=== PATIENT | male | born 1980 | race Caucasian/White ===

== ENCOUNTER 2016-08-14 15:23 | Emergency (ER) | payer MEDICAID ==
[2016-08-14] MEDS ORDERED: DIPHENHYDRAMINE HCL 50 MG CAPSULE PO ONE (15:43)
[2016-08-14] MEDS ORDERED: ACETAMINOPHEN 325 MG TABLET PO ONE (15:43)
[2016-08-14] MEDS ORDERED: ONDANSETRON 4 MG TAB.RAPDIS PO ONE (15:43)
--- NOTE | 2016-08-14 15:43 | ER Document Report ---
ED Medical Screen (RME) - General Stated Complaint: HEADACHE Time seen by provider: 15:39 Mode of Arrival: Ambulatory Information source: Patient Notes: 35-year-old male presents to ED for a headache since yesterday morning. Nausea since last night and vomiting this morning. Intermittent blurred vision pain comes and goes sometimes is very sharp sometimes is throbbing. Sensitive to light and noisesensitivity to position or movement. Patient has a history of migraine last one was 2-3 weeks ago. Normally takes Excedrin Migraine for his headaches no relief this time. I have greeted and performed a rapid initial assessment of this patient. A comprehensive ED assessment and evaluation of the patient, analysis of test results and completion of medical decision making process will be conducted by an additional ED providers. TRAVEL OUTSIDE OF THE [place] IN LAST 30 DAYS: No - Related Data Allergies/Adverse Reactions: No Known Allergies Allergy (Verified 08/14/16 15:39) Past Medical History Neurological Medical History: Reports: Hx Migraine - Immunizations Hx Diphtheria, Pertussis, Tetanus Vaccination: Yes Physical Exam - Vital signs Vitals: Temp Pulse Resp BP Pulse Ox 97.8 F 74 16 112/73 98 08/14/16 15:28 08/14/16 15:28 08/14/16 15:28 08/14/16 15:28 08/14/16 15:28 Course - Vital Signs Vital signs: Temp Pulse Resp BP Pulse Ox 97.8 F 74 16 112/73 98 08/14/16 15:28 08/14/16 15:28 08/14/16 15:28 08/14/16 15:28 08/14/16 15:28
[2016-08-14] MEDS ORDERED: NORMAL SALINE 1000 ML 1,000 ML IV ONE (16:13)
[2016-08-14] MEDS ORDERED: KETOROLAC TROMETHAMINE INJ/PF 30 MG/1 ML SDV IV ONE (16:13)
--- NOTE | 2016-08-14 16:19 | ER Document Report ---
ED Headache - General Chief Complaint: Headache Stated Complaint: HEADACHE Time seen by provider: 16:14 Mode of Arrival: Ambulatory Notes: This is a 35 year old male that presents today with headache for the past 2 days. Patient states that yesterday morning at 0800 he woke up with a headache. Pain was 1 out of 10 intermittent. Location of headache as frontal bilateral pressure. This morning around 0730 however the patient stated that his headache was a 4 out of 10 and he was nauseous and vomited one time. Denies hematemesis. He then took Excedrin and went back to sleep and woke up with a headache that was 2 out of 10. He admits to blurred vision and dizziness and light sensitivity. He currently denies fever chills abdominal pain chest pain. TRAVEL OUTSIDE OF THE [place] IN LAST 30 DAYS: No - Related Data Allergies/Adverse Reactions: No Known Allergies Allergy (Verified 08/14/16 15:39) Past Medical History - General Information source: Patient - Social History Smoking Status: Former Smoker Chew tobacco use (# tins/day): No Family History: Reviewed & Not Pertinent Patient has suicidal ideation: No Patient has homicidal ideation: No Neurological Medical History: Reports: Hx Migraine Renal/ Medical History: Denies: Hx Peritoneal Dialysis - Immunizations Hx Diphtheria, Pertussis, Tetanus Vaccination: Yes Review of Systems - Review of Systems Constitutional: denies: Chills, Fever EENT: Blurred vision Cardiovascular: denies: Chest pain Respiratory: No symptoms reported Gastrointestinal: No symptoms reported Genitourinary: No symptoms reported Male Genitourinary: denies: Testicular pain Musculoskeletal: No symptoms reported Skin: No symptoms reported Hematologic/Lymphatic: No symptoms reported Neurological/Psychological: No symptoms reported Physical Exam - Vital signs Vitals: Temp Pulse Resp BP Pulse Ox 97.8 F 74 16 112/73 98 08/14/16 15:28 08/14/16 15:28 08/14/16 15:28 08/14/16 15:28 08/14/16 15:28 - HEENT Head: Normocephalic, Atraumatic Eyes: Normal. No: Scleral icterus, Tears Conjunctiva: Normal - Respiratory Respiratory status: No respiratory distress Breath sounds: Normal. No: Rales, Rhonchi, Stridor, Wheezing - Cardiovascular Rhythm: Regular Heart sounds: Normal auscultation - Abdominal Inspection: Normal Bowel sounds: Normal Tenderness: Nontender - Back Back: Normal - Extremities General upper extremity: Normal inspection, Nontender, Normal strength, Normal temperature General lower extremity: Normal inspection, Nontender, Normal strength, Normal temperature - Neurological Cognition: Normal. No: Confused - Psychological Associated symptoms: Normal affect, Normal mood - Skin Skin Temperature: Warm Skin Moisture: Dry Skin Color: Normal Course - Re-evaluation Re-evalutation: 08/14/16 17:44 Patient states that his headache is now 1 out of 10. Patient denies nausea vomiting fever chills. Prior to discharge patient states that his headache feels much better. Lab results were shared with the patient. He was given multiple opportunities to ask questions. He was advised to follow-up with primary care physician. - Vital Signs Vital signs: Temp Pulse Resp BP Pulse Ox 98.1 F 76 16 118/70 98 08/14/16 18:06 08/14/16 18:06 08/14/16 18:06 08/14/16 18:06 08/14/16 18:06 Discharge - Discharge Clinical Impression: Headache Qualifiers: Headache type: tension-type Headache chronicity pattern: acute headache Intractability: not intractable Qualified Code(s): G44.209 - Tension-type headache, unspecified, not intractable Condition: Good Disposition: HOME, SELF-CARE Additional Instructions: Return to the emergency department if symptoms worsen such as loss of consciousness, loss of motor function, loss of sensation,etc. follow-up with primary care physician as soon as possible. Prescriptions: Ondansetron [Zofran Odt 4 mg Tablet] 1 - 2 tab PO Q4H PRN #15 tab.rapdis PRN Reason: For Nausea/Vomiting Forms: Return to Work Referrals: BRANDON ANDREW MD [Primary Care Provider] - Follow up as needed
[2016-08-14 18:07] VITALS: BP 118/70
== END 2016-08-14 18:09 | disposition home or self-care (01) ==
LOC: ER 15:23
DX: G44.209 Tension-type headache, unspecified, not intractable (principal); R11.2 Nausea with vomiting, unspecified; H53.8 Other visual disturbances
CPT/HCPCS: 99283; 96361; 96374; 96375; J3490 ×2; S0119; J1885; J7030

== ENCOUNTER 2016-08-29 19:37 | Emergency (ER) | payer MEDICAID ==
--- NOTE | 2016-08-29 20:48 | ER Document Report ---
ED Medical Screen (RME) - General Stated Complaint: RIGHT SIDE PAIN Notes: 14 days denies injury c/o right neck pain, shoulder, hip and ankle. able to walk but limp due to pain PMH: migraines and ADD hasnt been taking anything at home for pain I have greeted and performed a rapid initial assessment of this patient. A comprehensive ED assessment and evaluation of the patient, analysis of test results and completion of the medical decision making process will be conducted by additional ED providers. TRAVEL OUTSIDE OF THE [place] IN LAST 30 DAYS: No - Related Data Allergies/Adverse Reactions: No Known Allergies Allergy (Verified 08/14/16 15:39) Past Medical History Neurological Medical History: Reports: Hx Migraine Renal/ Medical History: Denies: Hx Peritoneal Dialysis - Immunizations Hx Diphtheria, Pertussis, Tetanus Vaccination: Yes
[2016-08-29] MEDS ORDERED: IBUPROFEN 800 MG TABLET PO ONE ×2 (20:49→20:50)
[2016-08-29 21:31] LABS: ALANINE AMINOTRANSFERASE 32 U/L (21-72); ALBUMIN 4.9 g/dL (3.5-5.0); ALKALINE PHOSPHATASE 71 U/L (38-126); ANION GAP 13 (5-19); ASPARTATE AMINO TRANSFERASE 19 U/L (17-59); BILIRUBIN,TOTAL 0.5 mg/dL (0.2-1.3); BLOOD UREA NITROGEN 11 mg/dL (7-20); CALCIUM 9.7 mg/dL (8.4-10.2); CARBON DIOXIDE 27 mmol/L (22-30); CHLORIDE 103 mmol/L (98-107); CREATINE KINASE 66 U/L (55-170); CREATININE RESULT 1.03 mg/dL (0.52-1.25); GLUCOSE 86 mg/dL (75-110); POTASSIUM 3.8 mmol/L (3.6-5.0); SODIUM 142.8 mmol/L (137-145); TOTAL PROTEIN 7.4 g/dL (6.3-8.2)
[2016-08-29 22:52] LABS: APPEARANCE,URINE TURBID; BILIRUBIN,URINE NEGATIVE (NEGATIVE); GLUCOSE, URINE NEGATIVE (NEGATIVE); KETONES,URINE 20 mg/dL (NEGATIVE); LEUKOCYTE ESTERASE,URINE NEGATIVE (NEGATIVE); NITRITE,URINE NEGATIVE (NEGATIVE); PROTEIN,URINE 30 mg/dL (NEGATIVE); URINE SPECIFIC GRAVITY 1.019; UROBILINOGEN,URINE NEGATIVE mg/dL (<2.0)
[2016-08-30] MEDS ORDERED: TRAMADOL HCL 50 MG TABLET PO ONE (00:20)
--- NOTE | 2016-08-30 00:20 | ER Document Report ---
ED General - General Chief Complaint: Pain All Over Stated Complaint: RIGHT SIDE PAIN TRAVEL OUTSIDE OF THE [place] IN LAST 30 DAYS: No - Related Data Allergies/Adverse Reactions: No Known Allergies Allergy (Verified 08/14/16 15:39) Past Medical History - Social History Smoking Status: Never Smoker Chew tobacco use (# tins/day): No Frequency of alcohol use: None Drug Abuse: None Family History: Reviewed & Not Pertinent Patient has suicidal ideation: No Patient has homicidal ideation: No Neurological Medical History: Reports: Hx Migraine Renal/ Medical History: Denies: Hx Peritoneal Dialysis - Immunizations Hx Diphtheria, Pertussis, Tetanus Vaccination: Yes Course - Laboratory Result Diagrams: 08/29/16 21:09 Laboratory results interpreted by me: 08/29/16 22:15 Urine Protein 30 H Urine Ketones 20 H Urine Ascorbic Acid 40 H Discharge - Discharge Clinical Impression: Right-sided back pain Qualifiers: Back pain location: low back pain Chronicity: acute Sciatica presence: with sciatica Sciatica laterality: sciatica of right side Qualified Code(s): M54.41 - Lumbago with sciatica, right side Thoracic back pain Qualifiers: Chronicity: acute Back pain laterality: right Qualified Code(s): M54.6 - Pain in thoracic spine Condition: Good Disposition: HOME, SELF-CARE Additional Instructions: LOW BACK PAIN: Three out of every four people will have an episode of disabling back pain during their lifetime. Most commonly the pain is due to straining of the muscles and ligaments in the low back. Usual treatment includes: (1) Rest on a firm surface. Avoid lying on your stomach. (2) Ice pack the painful area. After a few days, gentle heat may be used intermittently to relax the area, or ice packs can be continued. (3) Medication may be needed -- muscle relaxers and antiinflammatory medicines are commonly used. (4) As the back improves, exercises are prescribed to strengthen the back and abdominal muscles. Your doctor will advise you on the proper care for your back at each stage in your recovery. You may be better in a few days -- or healing may take several weeks. If new symptoms of a "herniated disc" (radiation of pain, numbness, or tingling down the back of the leg or weakness in the leg) occur, you should be re-examined. Further testing may be necessary. PAIN MEDICATION INJECTION: You have received an injection of a pain medication. You should experience significant pain relief within 45 minutes. If this injection was a narcotic -- it will impair your judgement, slow your reaction time and make you sleepy (as well as relieve your pain). Narcotics also can cause nausea. You should not drive, work with machinery, or perform any task requiring mental alertness until all effects of the medication are gone -- six to eight hours. Do not take any alcohol, or sedatives, and do not take any other medication without checking with your physician. ORAL NARCOTIC MEDICATION: You have been given a prescription for pain control. This medication is a narcotic. It's best taken with food, as nausea can result if taken on an empty stomach. Don't operate machinery or drive within six hours of taking this medication. Do not combine this medicine with alcohol, or with any medication which can cause sedation (such as cold tablets or sleeping pills) unless you get permission from the physician. Narcotics tend to cause constipation. If possible, drink plenty of fluids and eat a diet high in fiber and fruits. Please be aware that prescription narcotics also have the potential for abuse. People become addicted to these medications because of the general sense of wellbeing that they induce. This feeling along with a significant reduction in tension, anxiety, and aggression provides a stimulating seductive quality to these drugs. Once your pain is under control, we encourage you to discard your unused narcotics. ICE PACKS: Apply ice packs frequently against the painful area. Many different schedules are recommended, such as "20 minutes on, 20 minutes off" or "one hour ice, two hours rest." If you need to work, you may need to go longer between ice treatments. You should plan to have the area ice packed AT LEAST one fourth of the time. The ice should be applied over the wrap, tape, or splint, or over a layer of cloth -- not directly against the skin. Some ice bags have a built-in cloth and can be put directly on the skin. WARM PACKS: After approximately two days, apply gentle heat (such as a heating pad or hot water bottle) for about 20 to 30 minutes about every two hours -- at least four times daily. Warmth and elevation will help you make a more rapid recovery , and will ease the pain considerably. Do not use HOT heat, and never apply heat for longer than 30 minutes. The continuous heat can invisibly damage skin and muscles -- even when no burn is seen on the surface. Damaged muscles can make you MORE sore. FOLLOW-UP CARE: If you have been referred to a physician for follow-up care, call the physician s office for an appointment as you were instructed or within the next two days. If you experience worsening or a significant change in your symptoms, notify the physician immediately or return to the Emergency Department at any time for re-evaluation. Please return to the ER if you have worsening pain, fevers, vomiting, loss of control of your bowels, inability to urinate or feel unwell. Prescriptions: Tramadol HCl [Ultram 50 mg Tablet] 50 mg PO Q6HP PRN #20 tablet PRN Reason: Forms: Return to Work
[2016-08-30 00:46] VITALS: BP 136/72
== END 2016-08-30 00:46 | disposition home or self-care (01) ==
LOC: ER 19:37
DX: M54.41 Lumbago with sciatica, right side (principal); M54.6 Pain in thoracic spine; R52 Pain, unspecified
CPT/HCPCS: 99283; 36415; 82550; 80053; 81001; J3490

== ENCOUNTER 2018-01-08 21:23 | Emergency (ER) | payer SELFPAY ==
[2018-01-09] MEDS ORDERED: LIDOCAINE 2% VISCOUS SOLN 20 ML UDCUP PO ONE (00:34)
[2018-01-09] MEDS ORDERED: AMOXICILLIN TRIHYD 250 MG CAPSULE PO ONE (00:34)
--- NOTE | 2018-01-09 00:53 | ER Document Report ---
HPI - HPI Pain Level: 1 Notes: Patient is a 37-year-old male with no significant past medical history who presents to the ED complaining of right ear pain 1 day. Patient states that he feels like there is fluid behind his ear, but has had pain throughout the day. He has tried some [id number]-vwd-[id number] meds with minimal relief. Pain does not radiate. Patient states that he has not been swimming recently. Denies any drug allergies or IV drug use. No other recent illness. He has not had any dizziness, tinnitus, or ear fullness. Denies any headache, fever, head injury, neck pain, changes in vision/speech/mentation/hearing, URI, sore throat , chest pain, palpitations, syncope, cough, shortness of breath, wheeze, dyspnea , abdominal pain, nausea/vomiting/diarrhea, urinary retention, dysuria, hematuria, or rash. - ROS Systems Reviewed and Negative: Yes All other systems reviewed and negative - CONSTITUTIONAL Constitutional: DENIES: Fever, Chills - EENT EENT: REPORTS: Ear Pain - RIGHT. DENIES: Sore Throat, Eye problems - NEURO Neurology: DENIES: Headache, Weakness, Vision blurred, Dizzinesss / Vertigo - CARDIOVASCULAR Cardiovascular: DENIES: Chest pain - RESPIRATORY Respiratory: DENIES: Trouble Breathing, Coughing - GASTROINTESTINAL Gastrointestinal: DENIES: Abdominal Pain, Black / Bloody Stools - REPRODUCTIVE Reproductive: DENIES: : - MUSCULOSKELETAL Musculoskeletal: DENIES: Extremity pain Past Medical History - Social History Smoking Status: Unknown if Ever Smoked Chew tobacco use (# tins/day): No Frequency of alcohol use: None Drug Abuse: None Family History: Reviewed & Not Pertinent Patient has suicidal ideation: No Patient has homicidal ideation: No Neurological Medical History: Reports: Hx Migraine Renal/ Medical History: Denies: Hx Peritoneal Dialysis - Immunizations Hx Diphtheria, Pertussis, Tetanus Vaccination: Yes Vertical Provider Document - CONSTITUTIONAL Agree With Documented VS: Yes Notes: PHYSICAL EXAMINATION: GENERAL: Well-appearing, well-nourished and in no acute distress. A&Ox4. Answers questions appropriately. Moves comfortably w/o notable distress HEAD: Atraumatic, normocephalic. EYES: Pupils equal round and reactive to light, extraocular movements intact, sclera anicteric, conjunctiva are normal. ENT: EAC clear b/l. Rt TM wnl. Lt TM is mildy bulging with erythema, some fluid is noted as well behind the TM. Nares patent and without discharge. oropharynx no erythema without exudates. No tonsilar hypertrophy without erythema or exudate. No palatine shift. Uvula midline. No tongue protrusion. No drooling, hoarseness, or airway compromise. Moist mucous membranes. No sinus tenderness. NECK: Normal range of motion, supple without lymphadenopathy. No rigidity/ meningismus. LUNGS: Breath sounds clear to auscultation bilaterally and equal. No wheezes rales or rhonchi. No retractions HEART: Regular rate and rhythm without murmurs, rubs, gallops. NEUROLOGICAL: Normal speech, normal gait. PSYCH: Normal mood, normal affect. SKIN: Warm, Dry, normal turgor, no rashes or lesions noted. - INFECTION CONTROL TRAVEL OUTSIDE OF THE [place] IN LAST 30 DAYS: No Course - Re-evaluation Re-evalutation: 01/09/18 00:51 Patient is an afebrile, well-hydrated, 37-year-old male who presents to the ED with an acute otitis media of the right ear. Vitals are acceptable. PE is otherwise unremarkable. Patient does not have any significant tachycardia, tachypnea, or hypoxia. He is nontoxic-appearing and is tolerating p.o. without any difficulties. No labs or imaging warranted at this time based on H&P. Viscous lidocaine was applied to the right ear which resolved patient's pain, but will only be temporary as reviewed with patient. First dose of amoxicillin given p.o. today. I will send him home with a prescription for amoxicillin. Low suspicion for any sepsis, meningitis, severe dehydration, respiratory compromise, mastoiditis, or other systemic emergent condition at this time. Patient is aware that condition can change from initial presentation and he needs to monitor symptoms closely and seek medical attention with any acute changes. Conservative measures for symptoms. Recheck with your PCM in 3-5 days. Consider consult with ENT. Return to the ED with any worsening/ concerning symptoms otherwise as reviewed discharge. Patient is in agreement. - Vital Signs Vital signs: Temp Pulse Resp BP Pulse Ox 98.4 F 64 16 128/82 H 97 01/08/18 22:01 01/08/18 22:01 01/08/18 22:01 01/08/18 22:01 01/08/18 22:01 Discharge - Discharge Clinical Impression: Acute otitis media, right Condition: Stable Disposition: HOME, SELF-CARE Instructions: Otitis Media ([facility]), Amoxicillin ([facility]) Additional Instructions: Maintain adequate fluid intake Take meds as directed tylenol/ibuprofen as needed over the counter cold medication as needed for symptoms Wash your hands regularly Avoid q-tips in ears F/u: with your PCM in 3-5 days for a recheck Consider consult with ENT Return to the ED with any fever, worsening pain, chest pain, palpitations, syncope, worsening IBARRA, neck pain/stiffness, shortness of breath, wheezing, drooling, trouble swallowing/breathing, abdominal pain, n/v/d, rash, or worsening/concerning symptoms otherwise. Prescriptions: Amoxicillin Trihydrate [Amoxil 875 mg Tablet] 1 tab PO BID #20 tablet Forms: Elevated Blood Pressure Referrals: KHUSHI LIN DO [ASSOCIATE] - Follow up as needed
[2018-01-09 03:05] VITALS: BP 135/68
== END 2018-01-09 02:45 | disposition home or self-care (01) ==
LOC: ER 21:23
DX: H66.91 Otitis media, unspecified, right ear (principal); H92.01 Otalgia, right ear
CPT/HCPCS: 99282; J3490 ×2